=== PATIENT | male | born 1980 | race Caucasian/White ===

== ENCOUNTER 2024-07-06 10:24 | Observation (INO) | payer MEDICAID, SELFPAY ==
[2024-07-06] VITALS (47 sets, daily range): BP systolic 129–177; BP diastolic 78–100; PULSE 70–95; RESP 13–23; TEMP 36–36.5; O2SAT 92–974; BMI 41.8
--- NOTE | 2024-07-06 10:42 | ED.GENADUL_ITS ---
Discharge Plan Disposition Patient Disposition: Home Condition: Stable Discharge Details Clinical Impression: Acute appendicitis Primary Care Provider: Unknown,Unknown ED Provider: Kyle Sood Home Meds and New Rx's Prescriptions: No Action No Known Home Meds HPI General Mode of arrival: ambulatory . Date/Time Provider Initiated Documentation: 07/06/24 10:26 . Limitations to Documentation: no limitations . Information obtained by: patient . History of Present Illness 44 year old M presents to the emergency department with the chief complaint of right sided abdominal pain, described as moderate, Quality is described as sharp, and is localized to the abdomen. Patient reports no radiation. Patient started experiencing this day(s) (1) and it has been constant. No relieving factors improve symptom(s), No exacerbating factors reported . Patient notes denies chest pain, fever/chills and shortness of breath. Patient did receive the following treatments prior to arrival, none Related Data Home Medications ?Medication ?Instructions ?Recorded ?Confirmed Unknown [No Known Home Meds] 07/06/24 07/06/24 Allergies Allergy/AdvReac Type Severity Reaction Status Date / Time piperacillin (From Zosyn) Allergy Mild Skin Rash Verified 07/06/24 14:12 tazobactam (From Zosyn) Allergy Mild Skin Rash Verified 07/06/24 14:12 General Stated Complaint: Abd Prob WARD: 3 Review of Systems All systems reviewed & are unremarkable except as noted in HPI and below Constitutional Constitutional: Denies chills, Denies fever(s) and Denies weakness Cardiovascular Cardiovascular: Denies chest pain and Denies dyspnea Respiratory Respiratory: Denies cough and Denies dyspnea Gastrointestinal Gastrointestinal: Reports abdominal pain, Reports nausea and Denies vomiting Genitourinary Genitourinary: Denies dysuria Integumentary/Breasts Skin/Breast: Denies rash Neurologic Neurologic: Denies weakness Exam Const General: no acute distress Orientation: alert HENMT Head: normal to inspection Ears: external ears normal General nose exam: external nose normal Mouth: moist mucous membranes Eyes General: appearance normal, both eyes and all related structures Neck Neck: normal visual inspection Resp Effort & Inspection: normal respiratory effort and able to speak in complete sentences Cardio Rate: regular rate GI Palpation: soft and tender Skin General skin exam: no rashes or lesions noted Neuro General: patient alert and patient oriented x3 Extrem General: normal to inspection Psych Mental Status: mental status grossly normal Course Vital Signs Vital signs: Vital Signs Temperature 36.0 C L 07/06/24 10:31 Pulse 95 H 07/06/24 10:31 Respiratory Rate 16 07/06/24 10:31 Blood Pressure 133/85 07/06/24 10:31 Pulse Oximetry 95 07/06/24 10:31 Temperature 36.0 C L 07/06/24 10:31 Temperature Source Temporal Artery Scan 07/06/24 10:31 Pulse 95 H 07/06/24 10:31 Respiratory Rate 16 07/06/24 10:31 Respiratory Effort Normal 07/06/24 10:34 Blood Pressure 133/85 07/06/24 10:31 Blood Pressure Position Sitting 07/06/24 10:31 Pulse Oximetry 95 07/06/24 10:31 Oxygen Delivery Method Room Air 07/06/24 10:31 Oxygen Flow Rate 0 07/06/24 10:31 Pain Level 3 07/06/24 10:31 Medical Decision Making 44-year-old male with no significant past medical history and denies any surgical history comes in with right-sided abdominal pain since yesterday. Denies any vomiting but has had some nausea, no fevers or chills, states no change in urinary or bowel habits. He is stable on arrival, his abdomen is soft but he is tender in the right lower quadrant and right oblique. No tenderness on the left side or upper abdomen. Concern for appendicitis and possibly kidney stone. Will proceed with CBC, CMP, lipase and CT abdomen pelvis to further eval uate Labs show mild leukocytosis, CT shows findings concerning for appendicitis. high speed warper tender in the right lower quadrant. Zosyn ordered. Spoke with Dr. Marin who will evaluate his images and case. Shortly after finishing the Zosyn patient had an itchy rash on his arms and legs that appear to be urticaria, he has taken penicillins and amoxicillin within the past without issue. Will discontinue Zosyn at this time. Updated Dr. Marin who still plans to bring to the OR Differential Diagnosis Differential Diagnosis: appendicitis kidney stone Lab Data Lab results reviewed: Yes I reviewed the patient's lab results. Quality:SDOH Health Related Social Needs: No Data to Display PFSH All Active Problems (Updated 07/06/24 @ 14:18 by Kyle Sood MD) Acute appendicitis (Acute) Social History Smoking risk assessment performed?: No
[2024-07-06 11:22] LABS: Abs Immature Grans 0.04 10^3/uL (0.0-0.06); Absolute Basophil Count 0.05 10^3/uL (0.0-0.2); Absolute Eosinophil Count 0.17 10^3/uL (0.0-0.7); Absolute Lymphocyte Count 2.25 10^3/uL (1.2-3.4); Absolute Monocyte Count 1.18 10^3/uL (0.1-0.8); Basophils % 0.4 %; Eosinophils % 1.4 %; HCT 46.5 % (40.0-50.0); HGB 15.5 g/dL (13.5-17.5); Immature Grans % 0.3 %; Lymphocytes % 18.9 %; MCH 32.4 pg (27.0-33.0); MCHC 33.3 % (32.0-36.0); MCV 97 fL (80-95); MPV 9.4 fL (8.0-11.0); Monocytes % 9.9 %; Neutrophils % 69.1 %; Platelet Count 245 10^3/uL (130-400); RBC 4.79 10^6/uL (4.36-5.78); RDW 11.8 % (11.8-14.1); RDW-SD 42.3 fL; WBC 11.89 10^3/uL (4.4-10.8)
[2024-07-06] MEDS: Ketorolac 15 MG/ML VIAL IVP (11:24)
[2024-07-06] MEDS: Ondansetron 4 MG/2 ML VIAL IVP (11:24)
[2024-07-06 11:25] LABS: Absolute Neutrophil Count 8.22 10^3/uL (1.2-6.7)
[2024-07-06] MEDS: Omnipaque 350 MG/ML 100 ML BTL IJ (11:26)
[2024-07-06] MEDS: Normal Saline - Diluent 50 ML VIAL IJ (11:27)
[2024-07-06 11:36] LABS: ALT 59 U/L (16-63); AST 31 U/L (15-37); Albumin 3.6 g/dL (3.4-5.0); Alkaline Phosphatase 84 U/L (46-116); Anion Gap 8.8 mmol/L (3-11); BUN 11 mg/dL (7-18); Bilirubin, Direct 0.2 mg/dL (0.0-0.2); Bilirubin, Total 0.72 mg/dL (0.2-1.0); CO2 26.2 mmol/L (21.0-32.0); Calcium 9.3 mg/dL (8.5-10.1); Chloride 105 mmol/L (98-107); Glucose 130 mg/dL (74-106); Lipase 39 U/L (16-77); Magnesium 1.8 mg/dL (1.8-2.4); Potassium 4.2 mmol/L (3.5-5.1); Sodium 140 mmol/L (136-145); Total Protein 7.5 g/dL (6.4-8.2)
--- NOTE | 2024-07-06 11:37 | DI.CT_ITS ---
Exam(s) CT ABDOMEN PELVIS W EXAM: CT ABDOMEN PELVIS W CLINICAL HISTORY: abdominal pain, right lower/oblique. TECHNIQUE: Imaging Protocol: Axial computed tomography images with coronal and sagittal reformatted images were created and reviewed CONTRAST MATERIAL: Intravenous: Omnipaque-350 100cc Oral: None COMPARISON: CR CHEST 2 VIEWS PA,LAT from 08/18/2011 FINDINGS: VISUALIZED LUNG BASES: No nodules nor pleural effusions evident. ABDOMEN: There is no ascites. LIVER: There are no focal hepatic lesions evident. There is mild hepatic steatosis. No dilated intr ahepatic ducts. GALLBLADDER/BILIARY: No obvious gallbladder pathology. CBD is not dilated. PANCREAS: No evidence of pancreatic mass nor dilatation of the pancreatic duct. SPLEEN: Spleen is not enlarged. No obvious intrasplenic lesions. Splenic and portal veins are paten t. ADRENALS: There are no significant adrenal masses. KIDNEYS:No cysts evident. No solid renal masses. There is a nonobstructive 3 millimeter calculus in lower pole of the right kidney. No radiopaque calculi seen in the left kidney nor along the course o f the nondilated ureters and there are no radiopaque calculi in the nondistended urinary bladder.. ABDOMINAL AORTA: Abdominal aorta is not enlarged. LYMPH NODES:There is no retroperitoneal nor paraaortic adenopathy. ABDOMINAL WALL: No evidence of significant anterior abdominal wall nor inguinal hernia. PELVIS: GI: The appendix diameter is slightly prominent measuring 7 mm. There is a single tiny calcified amanda endicolith in the appendix lumen. There is some abnormal streaking around the appendix and base of t he cecum. Also some abnormal streaking higher up around the ascending colon above the level of the i leocecal valve. The actual epicenter streaking appears to be related to a possible small diverticulu m on the posterior wall of the ascending-right colon. The terminal ileum appears unremarkable. No evidence of acute sigmoid diverticulitis. LYMPH NODES: There is no intrapelvic nor inguinal adenopathy. REPRODUCTIVE: Prostate gland size is normal. URINARY BLADDER: No calculi nor obvious masses evident OSSEOUS: No fractures and no significant osseous lesions. IMPRESSION: 1. Right lower quadrant findings as above. There is abnormal streaking around the ascending colon ju st above the ileocecal valve as well as around the appendix. Although these findings may be consiste nt with acute appendicitis. There is a possibility that the epicenter of disease here is in the asce nding colon posterior wall where there appears to be a full small diverticulum with surrounding infla mmatory streaking. There is no evidence of formed abscess at this time. 2. Incidentally noted is a nonobstructive 2-3 millimeter calculus in the right kidney. Discussed with ER physician 07/06/2024 11:55 a.m. RADIATION DOSE DELIVERED: 932.39mGy.cm Total DLP DATA REPOSITORY: All CT scans at this facility are submitted to the National Radiology Data Registry (NRDR) Dose Index Registry (DIR) with the [employer] (ACR). RADIATION OPTIMIZATION: All CT scans at this facility use at least one of these dose optimization te chniques: automated exposure control; mA and/or kV adjustment per patient size (includes targeted exa ms where dose is matched to clinical indication); or iterative reconstruction.
--- NOTE | 2024-07-06 12:15 | W.SURGCON ---
Date of service: 07/06/24 Time of Service: 12:15 Assessment and Plan Assessment and plan (1) Acute appendicitis: Status: Acute Assessment and plan: 44-year-old man with right lower quadrant pain that is likely acute appendicitis. He is hemodynamically stable, his abdominal exam is focal and not diffuse. He is subjectively doing fine. He has a mild leukocytosis I have reviewed his CT scan in careful detail. There is no free fluid or free air. The right lower quadrant has stranding and inflammation visible around the cecum and the base of the appendix. The appendix does appear mildly thickened. There is an appendicolith in the appendix. I think he almost certainly has acute appendicitis just based off of common things being common. Right sided diverticulitis is certainly in the differential diagnosis and a possible explanation however the chances of this being the cause are much less likely. If he did not have an appendicolith in his appendix, we might consider just antibiotic therapy and doing a colonoscopy at a future date. I am not willing to recommend this however because of the appendicolith. I do think it is worthwhile to do diagnostic laparoscopy and likely remove his appendix. If he does have acute diverticulitis and his cecum is inflamed such that removing the base of the appendix is risky, then I may just treat him with antibiotics based on those intraoperative findings. However, I do think unlikely to find an inflamed appendix as the cause and likely will remove it. I had a conversation with the patient in careful detail discussing all of these points and perspectives. He is in agreement and wishes to proceed with surgery. Overall plan: Diagnostic laparoscopy, likely appendectomy History of Present Illness Narrative: 44-year-old man started having right lower quadrant abdominal discomfort 2 days ago. It has slowly worsened. He has never had pain like this before. He has never had intra-abdominal surgery. He has never had a colonoscopy. He denies a family history of colon cancer. No unusual bowel habits or strange foods. He HAS had similar pain on the left side of his abdomen in the left lower quadrant. He says diverticulitis runs in his family and he had an attack of diverticulitis a while back after eating pistachios. He thinks that may have happened a few times. It has never happened on the right side however. He underwent a CT scan in the ER that showed possible appendicitis but also possible right?sided diverticulitis. [facility] All Active Problems (Updated 07/06/24 @ 14:18 by Kyle Sood MD) Acute appendicitis (Acute) Social History Smoking risk assessment performed?: No Exam Narrative Exam Narrative: General: Nontoxic, comfortable and interactive. He does not appear to be in any pain or any distress. Neuro: Alert and orient x 3 Psych: Good mood and affect, good insight and understanding into his condition Chest: Nonlabored breathing, no wheezing and no shortness of breath Heart: Regular Abdomen: Soft, nondistended, somewhat obese, focal right lower quadrant tenderness with tap tenderness. The other 3 quadrants are completely soft and nontender. Results Last Vital Signs Temp 96.8 F L 07/06/24 10:31 Pulse 78 07/06/24 11:25 Resp 16 07/06/24 11:25 BP 135/78 07/06/24 11:25 Pulse Ox 95 07/06/24 10:31 Labs 07/06/24 11:16 07/06/24 11:16 Labs: Laboratory Results - last 24 hr 07/06/24 11:16 WBC 11.89 H RBC 4.79 Hgb 15.5 Hct 46.5 MCV 97 H MCH 32.4 MCHC 33.3 RDW 11.8 Plt Count 245 MPV 9.4 Immature Gran % 0.3 Neutrophils % 69.1 Lymphocytes % 18.9 Monocytes % 9.9 Eosinophils % 1.4 Basophils % 0.4 Nucleated RBC % 0.0 Absolute Neutrophils 8.22 H Absolute Lymphocytes 2.25 Absolute Monocytes 1.18 H Absolute Eosinophils 0.17 Absolute Basophils 0.05 Sodium 140 Potassium 4.2 Chloride 105 Carbon Dioxide 26.2 Anion Gap 8.8 BUN 11 Creatinine 1.0 Est GFR (CKD-EPI 2020) 94.00 Glucose 130 H Calcium 9.3 Magnesium 1.8 Total Bilirubin 0.72 Conjugated Bilirubin 0.2 AST 31 ALT 59 Alkaline Phosphatase 84 Total Protein 7.5 Albumin 3.6 Lipase 39
[2024-07-06] MEDS: PIPERACILLIN/TAZO 4.5 GM in Normal Saline 100 ML IVPB (13:44)
--- NOTE | 2024-07-06 14:13 | NUR.NOTE ---
Pt's came out and said pt was itchy, on eval noted that hives to right hand and lower back, no swelling to mouth, O2 sat 97 on RA, HR 87, no dif breathing, MD into eval, will order benadryl, zosyn added to allergy list as was last med to infuse, just finished when onset of s/s, was asked prior to administration if had any allergies, pt and stated no allergy, on review pt stated had tolerated pcn/amox before with no issues.
[2024-07-06] MEDS: diphenhydrAMINE 50 MG/ML VIAL 25 MG IVP (14:28)
[2024-07-06] MEDS: Heparin 5,000 UNITS/ML VIAL 5000 UNITS SC (17:21)
--- NOTE | 2024-07-06 17:31 | W.PM.OP ---
Date of service: 07/06/24 Time of Service: 17:31 Operative Note Operative Note Refer to Anesthesia Record Procedure Description: Procedures performed: 1. Diagnostic Laparoscopy 2. Laparoscopic appendectomy Pre-op diagnosis: Acute appendicitis, possible RIGHT diverticulitis Postoperative diagnosis: Acute appendicitis Surgeon: Meg Marin Anesthesia: Rashard Russet Repairer: Tom Indication for procedure: 44 yo man with RLQ pain for 2 days acutely. Mild white count and CT showing inflammation at/around appendix base. Possibly related to nearby diverticulitis of the RIGHT colon as a DDX. FINDINGS: A non-perforated but very firm, indurated and inflamed appendix was removed in standard fashion. Specimens: 1. Appendix Complications: None Blood loss: 5 cc Urine output: Not measured Implants/drains: None Procedure in detail: Patient gave written consent and was in agreement with the indications, the likely benefits as well as the potential risks of surgery. He was taken back to the operating room where anesthesia was administered which was tolerated well. He was positioned supine on the operating room table and we then prepped and draped in sterile fashion. We confirmed DVT prophylaxis as well as antibiotics had been administered. When we were all in agreement with our timeout we started the procedure. Local was injected at the umbilicus. The patient has a very small primary umbilical defect(~5mm) and a small stab incision was made within the umbilicus and a 5 mm trocar was used to enter the abdominal cavity through this reducible hernia defect effortlessly. Insufflation was performed which was tolerated well. 2 more trocars were placed under direct visualization in the suprapubic location in the left lower quadrant. Local anesthetic was also given in each of the sites. We turned our attention to the right lower quadrant where a inflamed, indurated but nonperforated appendix was easily identified. There was no evidence of diverticulitis or any surrounding inflammation of the visible cecum or ascending colon exterior wall. There was a small amount of reactive fluid next to the appendix. Using the LigaSure I divided the mesoappendix all the way up to the base of the appendix at the level of the cecum. I passed the stapler across this and divided the appendix. It was placed in an Endo Catch bag and removed from the abdominal cavity. The specimen was passed off the back table and placed in formalin. The 12 mm port site was then closed with 0 Vicryl in the fascia using a Prashant-Mikhail. I rechecked for hemostasis in the right lower quadrant and it was excellent. The staple line looked perfect. I reapproximated the umbilical defect at the level of the fascia with a single 0 Vicryl suture. There was no tension. I released/evacuated the pneumoperitoneum and then removed the other 5 mm trocar. The skin was closed with running Monocryl and skin glue was placed on top of each site. Patient tolerated the procedure well. The sponge, instruments and sharps counts were correct x3 at the end of the procedure. He was extubated and taken to the PACU in hemodynamically stable condition.
--- NOTE | 2024-07-06 17:52 | ANES.PREOP_ITS ---
General Info Date of Service Date Performed: 07/06/24 Height: 5 ft 11 in Weight: 136 kg Body Mass Index (BMI): 41.8 Surgical Procedure: Operation Date: 07/06/24 17:25 Proposed Procedure Side Surgeon p Appendectomy Laparoscopic Adonay Marin MD Meds Allergies and Home Medications Allergies Allergy/AdvReac Type Severity Reaction Status Date / Time piperacillin (From Zosyn) Allergy Mild Skin Rash Verified 07/06/24 14:12 tazobactam (From Zosyn) Allergy Mild Skin Rash Verified 07/06/24 14:12 Home Medication ?Medication ?Instructions ?Recorded Unknown [No Known Home Meds] 07/06/24 Current Visit Medications: Current Medications Generic Name Dose Route Start Last Admin Trade Name Freq PRN Reason Stop Dose Admin IV Miscellaneous Supplies 1 each 07/06/24 10:45 Iv Access IV DIRECTED MARICARMEN Iohexol 100 ml 07/06/24 11:30 07/06/24 11:26 Omnipaque 350 Mg/Ml 100 Ml Btl IJ 08/05/24 23:59 100 ml DIRECTED MARICARMEN Administration Sodium Chloride 0 ml 07/06/24 10:41 Normal Saline Flush 10 Ml Syr IVP PRN PRN Sodium Chloride 0 ml 07/06/24 20:00 Normal Saline Flush 10 Ml Syr IVP BID MARICARMEN Sodium Chloride 0 ml 07/06/24 10:41 Normal Saline 10 Ml Vial IJ DIRECTED PRN Sodium Chloride 50 ml 07/06/24 11:30 07/06/24 11:27 Normal Saline - Diluent 50 Ml Vial IJ 50 ml .FOR DI USE MARICARMEN Administration PFSH Active Problems Active Problems: Problem Status Onset Code Acute appendicitis Acute K35.80 Vital Signs and Lab Results Vital Signs Most Recent Vital Signs in EMR: Most Recent Vital Signs Temp Pulse Resp BP Pulse Ox 36.0 C L 76 16 166/91 H 96 07/06/24 10:31 07/06/24 16:05 07/06/24 11:25 07/06/24 16:05 07/06/24 16:05 Lab Results 07/06/24 11:16 07/06/24 11:16 Blood Type / Crossmatch: 2 No Data to Display Complete Blood Count: 2 White Blood Count 11.89 10^3/uL (4.4-10.8) H 07/06/24 11:16 Red Blood Count 4.79 10^6/uL (4.36-5.78) 07/06/24 11:16 Hemoglobin 15.5 g/dL (13.5-17.5) 07/06/24 11:16 Hematocrit 46.5 % (40.0-50.0) 07/06/24 11:16 Platelet Count 245 10^3/uL (130-400) 07/06/24 11:16 Complete Metabolic Panel: 2 Sodium 140 mmol/L (136-145) 07/06/24 11:16 Potassium 4.2 mmol/L (3.5-5.1) 07/06/24 11:16 Chloride 105 mmol/L (98-107) 07/06/24 11:16 Carbon Dioxide 26.2 mmol/L (21.0-32.0) 07/06/24 11:16 BUN 11 mg/dL (7-18) 07/06/24 11:16 Creatinine 1.0 mg/dL (0.70-1.30) 07/06/24 11:16 Est GFR (CKD-EPI 2020) 94.00 (mL/min/1.73m2) 07/06/24 11:16 Magnesium 1.8 mg/dL (1.8-2.4) 07/06/24 11:16 Calcium 9.3 mg/dL (8.5-10.1) 07/06/24 11:16 Albumin 3.6 g/dL (3.4-5.0) 07/06/24 11:16 Glucose 130 mg/dL (74-106) H 07/06/24 11:16 Liver Function Panel: 2 Alanine Aminotransferase (ALT/SGPT) 59 U/L (16-63) 07/06/24 11: 16 Aspartate Amino Transf (AST/SGOT) 31 U/L (15-37) 07/06/24 11:16 Coagulation Panel: 2 No Data to Display Cardiac Panel: 2 No Data to Display Arterial Blood Gas: 2 No Data to Display Venous Blood Gas: 2 No Data to Display Pancreas Panel: 2 Lipase 39 U/L (16-77) 07/06/24 11:16 Thyroid Panel: 2 No Data to Display Infectious Disease: 2 No Data to Display Blood Cultures: 2 No Data to Display Toxicology Panel: 2 No Data to Display Anesthesia Assessment and Plan Anesthesia History Personal History: No History of Anesthesia Complications Family History: No Family History of Anesthesia Complications Exercise Tolerance Exercise Tolerance: Metabolic Equivalents>4 Pertinent Negatives Pertinent Negatives: No Symptoms of GERD Cardiac & Pulmonary Exam Cardiac Exam: Normal S1/S2 Heart Sounds Pulmonary Exam: Clear Bilateral Breath Sounds Implantable Cardiac Device Does patient have a Pacemaker or an ICD?: No Airway Exam Known Difficult Airway: No Mallampati Class: 2 Mouth Opening: Normal (> 3cm) Thyromental Distance: Greater than 3 cm Neck Range of Motion: Full ROM Neck Circumference: Thick Teeth Condition: Normal Dentition ASA Classification ASA Score: ASA 2 Emergency Case?: No NPO Status NPO Status: NPO Clears >2 hours, Solids >8 hours Anesthesia Plan Resuscitation Status: Full Code Anesthesia Technique: General Anesthesia Airway Planned: Endotracheal Tube Monitors Used: Standard Monitors
[2024-07-06] MEDS: Lactated Ringers 1,000 ML 100 ML IV (17:56)
[2024-07-06] MEDS: Bupivacaine 0.5% Pres-Free 30 ML VIAL (18:24)
--- NOTE | 2024-07-06 18:35 | APP_PTH ---
PATIENT: Joshua Chávez LOC: U#:[id number] AGE/SX: 44/M ROOM: [id number] RE07/06/[address]: Adonay Marin : 1980 BED: A DIS: 07/06/2024 SPEC #: [id number] RECD: 07/07/24 12:48 STATUS: SOUT REQ #: [id number] HU: 07/06/24 18:[address]: Adonay Marin DEPT: Surgical Specimen RECD BY: Isabel Calhoun ENTERED: 07/07/24 12:49 SP TYPE: Appendix OTHR DR: Nadine Carcamo, YENY Unknown,Unknown Tissues: 1 - APPENDIX NOT INCIDENTAL Procedures: GROSS AND MICRO LEVEL 3 Comments: [id number]
[2024-07-06] MEDS: fentaNYL 100 MCG/2 ML VIAL IVP (19:15)
--- NOTE | 2024-07-06 19:27 | W.ANESPOSTOP ---
Postoperative Evaluation Date, Time and Location Date Performed: 07/06/24 Time Performed: 19:27 Patient Location: PACU Vital Signs Most Recent Imported Vital Signs: Most Recent Vital Signs Temp Pulse Resp BP Pulse Ox 36.4 C L 78 19 169/88 H 94 07/06/24 19:11 07/06/24 19:17 07/06/24 19:20 07/06/24 19:17 07/06/24 19:20 Pain Score Most Recent Pain Score: Most Recent Pain Score Pain Level 7 07/06/24 19:11 Assessment Mental Status: Awake (Alert & Oriented to Patient Baseline) Airway and Respiratory Function: Patent airway with normal (patient baseline) respiratory exam Cardiovascular Function: Hemodynamically Stable Hydration Status: Adequately Hydrated Nausea & Vomiting: No Nausea or Vomiting Pain: Pain is tolerable per patient Peripheral Nerve Block: Patient did not receive a nerve block
--- NOTE | 2024-07-06 19:57 | W.PM.DSUDISC ---
Date of service: 07/06/24 Time of Service: 20:03 Discharge Plan Disposition Patient Disposition: Home Condition: Good Discharge Details Reason For Visit: Side Pain Admit Date/Time: 07/06/24 19:49 Admit Provider: Adonay Marin Attending Provider: Adonay Marin Primary Care Provider: Unknown,Unknown Home Meds and New Rx's Prescriptions: No Action No Known Home Meds Discharge Instructions Additional Instructions: call office in morning for follow up [phone]- tylenol and ibuprofen for pain Stand Alone Forms: Nursing Discharge Form Activity:: Activity as Tolerated Equipment/Supplies:: No Equipment Needed Diet:: clear liquid until 07/07 Discharge Orders Discharge Orders: Discharge Order (Routine); Ordered 07/06/24 Ordered By: Adonay Marin Discharge Data Discharge Date/Time-TO BE ENTERED AT DEPARTURE: 07/06/24 20:35 DS: Diagnosis Discharge Diagnosis (1) Acute appendicitis: Status: Acute Asessment and Plan: Patient presented to the ER with right lower quadrant pain. CT suggested appendicitis but possible right?sided diverticulitis. Diagnostic laparoscopy revealed non-perforated appendicitis. Underwent laparoscopic appendectomy without any incident and was discharged home postop.
== END 2024-07-06 20:35 | disposition home or self-care (01) ==
LOC: ER 14:18 → DSU 17:24 → MS 20:00
PROVIDERS: Admitting Provider Student in an Organized Health Care Education/Training Program; Emergency Provider Emergency Medicine; Visit Provider Student in an Organized Health Care Education/Training Program
PROC: 0DTJ4ZZ Resection of Appendix, Percutaneous Endoscopic Approach (ICD-10-PCS; CPT 44970; principal; 2024-07-06 17:15)
DX: K35.80 Unspecified acute appendicitis (principal); K57.32 Diverticulitis of large intestine without perforation or abscess without bleeding; K38.1 Appendicular concretions
CPT/HCPCS: 44970; 00123; 36415; 80053; 83690; 96365; 96375; 99285; 74177; 82248; 83735; 85025; 88304; J0665; J1100; J1200; J1644; J1885; J2001; J2405; J2543; J2704; J3010; J3490